=== PATIENT | male | born 1990 | race Caucasian/White ===

== ENCOUNTER 2020-07-25 14:24 | Emergency (ER) | payer OTHER ==
[~2020-07-25] VITALS: Ht 170 cm; Wt 80.8 kg
--- NOTE | 2020-07-25 14:36 | ED GU-Male ---
General Stated Complaint: GROIN PAIN Source: patient Exam Limitations: no limitations History of Present Illness Date Seen by Provider: Jul 25, 2020 Time Seen by Provider: 14:30 Initial Comments Anmol is a 30yo male who presents to the Emergency Department with about 24hours of "groin pain". He describes a "pulling sensation" in his groin, specifically pain down the shaft of his penis with increased urinary frequency and urgency. Patient states he wasn't really able to sleep last night secondary to the pain and need to urinate. He denies being sexually active. He denies penile discharge. HE denies discrete abdominal pain. He denies fever, n/v/d. He has had similar symptoms in the past, however they haven't lasted as long. He did take some alleve earlier in the morning without much relief. No problems with bowel movements. All other ROS reviewed and negative except as stated. Timing/Duration: just prior to arrival (1230) Severity/Quality: severe, aching Location: groin, scrotal Radiation: none Activities at Onset: none, emotional stress, rest Associated Symptoms: nausea/vomiting Allergies and Home Medications Allergies Coded Allergies: No Known Drug Allergies (Unverified , 07/25/20) Home Medications Doxycycline Hyclate 100 Mg Tablet, 100 MG PO BID Prescribed by: CATHY HARRY on 07/25/20 1524 Patient Home Medication List Home Medication List Reviewed: Yes Review of Systems Review of Systems Constitutional: see HPI EENTM: no symptoms reported Respiratory: no symptoms reported Cardiovascular: no symptoms reported Gastrointestinal: no symptoms reported Genitourinary: pain Musculoskeletal: no symptoms reported Skin: no symptoms reported All Other Systemes Reviewed Negative Unless Noted: Yes Physical Exam Vital Signs Vital Signs - First Documented 07/25/20 15:39 Temp 36.4 Pulse 81 Resp 16 B/P (MAP) 134/76 Pulse Ox 100 O2 Delivery Room Air Capillary Refill : Height, Weight, BMI Height: '" Weight: lbs. oz. kg; BMI Method: General Appearance: WD/WN, no apparent distress Neck: normal inspection Cardiovascular: regular rate, rhythm Respiratory: lungs clear, normal breath sounds, no respiratory distress, no accessory muscle use Gastrointestinal: non tender, soft Male: normal genitalia, no hernia; No inguinal tenderness, No testicular tenderness; other (circumcised; no obvious penile drainage) Genital/Rectal: normal genital exam Extremities: normal range of motion, non-tender, normal inspection, no pedal edema Neurologic/Psychiatric: alert, normal mood/affect, oriented x 3 Skin: normal color, warm/dry Progress/Results/Core Measures Suspected Sepsis SIRS Temperature: Pulse: Respiratory Rate: Blood Pressure / Mean: Results/Orders Lab Results Laboratory Tests Test 07/25/20 14:44 Range/Units Urine Color ORANGE Urine Clarity SL CLOUDY Urine pH 5.0 5-9 Urine Specific Maxwell >=1.030 1.016-1.022 Urine Protein 3+ H NEGATIVE Urine Glucose (UA) 1+ H NEGATIVE Urine Ketones TRACE H NEGATIVE Urine Nitrite POSITIVE H NEGATIVE Urine Bilirubin NEGATIVE NEGATIVE Urine Urobilinogen >=8.0 < = 1.0 MG/DL Urine Leukocyte Esterase TRACE H NEGATIVE Urine RBC (Auto) 3+ H NEGATIVE Urine RBC 50-100 H /HPF Urine WBC 25-50 H /HPF Urine Squamous Epithelial Cells NONE /HPF Urine Renal Epithelial Cells NONE /HPF Urine Crystals NONE /LPF Urine Bacteria NEGATIVE /HPF Urine Casts NONE /LPF Urine Mucus MODERATE H /LPF Urine Culture Indicated YES My Orders Orders - CATHY HARRY MD Ua Culture If Indicated (07/25/20 14:40) Neis Pancho Dna Urine Test (07/25/20 14:41) Urine Culture (07/25/20 14:44) Ceftriaxone For Im Use (Rocephin For Im (07/26/20 09:00) Lidocaine 1% Inj 20 Ml (Xylocaine 1% Inj (07/25/20 15:15) Ketorolac Injection (Toradol Injection) (07/25/20 15:15) Ceftriaxone For Im Use (Rocephin For Im (07/25/20 15:22) Medications Given in ED Vital Signs/I&O 07/25/20 07/25/20 14:40 15:39 Temp 36.4 Pulse 81 Resp 16 B/P (MAP) 134/76 Pulse Ox 100 O2 Delivery Room Air Capillary Refill : Progress Note : Time: 15:18 Progress Note patient with evidence of UTI on urinalysis. Will treat presumptovely for gonoccoal urethritis and also send a prescription for doxycycline to cover for chlamydia. Patient looks well. nontoxic in appearance. States he is not sexually active currently. Will culture Urine and contact the patient is culture is positive for anything else and adjust antibiotics as necessary. Patient advised to take [id number] NSAIDs like Aleve or ibuprofen for pain. He is given a shot of Toradol here in the emergency department. He is given Rocephin IM as well. Departure Impression Primary Impression: Urinary tract infection Qualified Codes: N39.0 - Urinary tract infection, site not specified; R31.9 - Hematuria, unspecified Disposition: 01 HOME, SELF-CARE Condition: Stable Departure-Patient Inst. Decision time for Depature: 15:22 Referrals: [facility] [place]LOCAL PHYSICIAN (PCP) Primary Care Physician Patient Instructions: Urinary Tract Infection, Adult (DC) Add. Discharge Instructions: Please increase your fluid intake to stay well-hydrated. You are quite dehydrated on urinalysis. I have given you a prescription for doxycycline. Please take this twice a day for 7 days. We will contact you in the next 48 to 72 hours if your culture comes back for gonorrhea or chlamydia or any other bacteria that would require medication adjustment. Come back to the emergency room for fever over 100.4 with increased pain, nausea, vomiting or any other emergent concerning symptoms. Scripts Doxycycline Hyclate (Doxycycline Hyclate) 100 Mg Tablet 100 MG PO BID, #14 TAB 0 Refills Prov: CATHY HARRY MD 07/25/20 Work/School Note: Work Release Form Date Seen in the Emergency Department: Jul 25, 2020 Return to Work: Jul 27, 2020 CATHY HARRY MD Jul 25, 2020 14:36
[2020-07-25 14:51] LABS: BILIRUBIN,URINE NEGATIVE (NEGATIVE); CLARITY,URINE SL CLOUDY; COLOR,URINE ORANGE; GLUCOSE, URINE (UA) 1+ (NEGATIVE); KETONES,URINE TRACE (NEGATIVE); LEUKOCYTE ESTERASE ,URINE TRACE (NEGATIVE); NITRITE,URINE POSITIVE (NEGATIVE); PROTEIN,URINE 3+ (NEGATIVE)
[2020-07-25 15:07] LABS: BACTERIA,URINE NEGATIVE /HPF; RBC,URINE 50-100 /HPF; WBC,URINE 25-50 /HPF
[2020-07-25] MEDS ORDERED: LIDOCAINE 1% INJ 20 ML 20 ML VIAL INJ ONE (15:15)
[2020-07-25] MEDS ORDERED: KETOROLAC 30 MG/ML VIAL IM ONE (15:15)
[2020-07-25] MEDS ORDERED: cefTRIAXone 1,000 MG/2.86 ml vial (IM ONLY) ONE (15:22)
[2020-07-25] MEDS ORDERED: DOXY100T2 PO (15:24)
[2020-07-25 15:39] VITALS: BP 134/76
[2020-07-26] MEDS ORDERED: cefTRIAXone 1,000 MG/2.86 ml vial (IM ONLY) IM SCH (09:00)
== END 2020-07-25 15:39 | disposition home or self-care (01) ==
LOC: ER 14:27
DX: N39.0 Urinary tract infection, site not specified (principal)
CPT/HCPCS: 36415; 81000; 87088; 87591; 99284

== ENCOUNTER → 2020-08-04 | Outpatient (CLI) | payer OTHER ==
[~2020-08-04] MED LIST: DOXY100T2 PO
--- NOTE | 2020-08-04 18:45 | Diagnostic Imaging Report ---
CLINICAL HISTORY: Chronic back pain. No known injury. COMPARISON: None. TECHNIQUE: 2 views of the thoracic spine. FINDINGS: There is no acute fracture or dislocation of the thoracic spine. Alignment is anatomic. Vertebral body heights are well maintained. The included lungs are clear. IMPRESSION: No acute fracture or dislocation in the thoracic spine. Dictated by: Dictated on workstation # [id number]
== END ==
LOC: RAD 18:16
PROVIDERS: ATTEND Nurse Practitioner Family
DX: M54.6 Pain in thoracic spine (principal)
CPT/HCPCS: 72070